=== PATIENT | male | born 1950 | race African-American/Black ===

== ENCOUNTER 2020-09-25 09:46 | Inpatient (IN) | payer MEDICARE ==
[~2020-09-25] VITALS: Ht 182.9 cm; Wt 117.9 kg
[2020-09-25] MEDS ORDERED: ACETAMINOPHEN 325 MG TAB PO ONE (10:00)
[2020-09-25 10:08] LABS: BASOPHILS # (AUTO) 0.1 (0.0-0.1); BASOPHILS % 0.4 % (0.0-1.0); EOSINOPHILS # (AUTO) 0.2 (0.0-0.4); EOSINOPHILS % 1.2 % (0.0-6.0); HEMOGLOBIN 8.1 g/dL (14.0-18.0); LYMPHOCYTES % 15.2 % (18.0-39.1); MEAN CORPUSCULAR HEMOGLOBIN 30.7 pg (28-32); MEAN CORPUSCULAR HGB CONC 31.2 g/dL (31-35); MEAN CORPUSCULAR VOLUME 98.5 fL (81-99); MONOCYTES # (AUTO) 1.4 (0.2-0.8); MONOCYTES % 10.8 % (4.4-11.3); NEUTROPHILS # (AUTO) 8.8 (2.1-6.9); NEUTROPHILS % 68.4 % (38.7-80.0); PLATELET COUNT 654 x10e3/uL (140-360); RED BLOOD COUNT 2.64 x10e6/uL (4.3-5.7)
[2020-09-25] MEDS ORDERED: SODIUM CHLORIDE 0.9% 1000ML 1,000 ML IV ONE (10:15)
[2020-09-25] MEDS ORDERED: CEFEPIME 1 GM in SODIUM CHLORIDE 0.9% 50ML 50 ML IV ONE (10:15)
[2020-09-25] MEDS ORDERED: SODIUM CHLORIDE 0.9% 50ML 50 ML ONE (10:23)
[2020-09-25] MEDS ORDERED: CEFEPIME HCL 1 GM VIAL ONE (10:23)
[2020-09-25] MEDS ORDERED: SODIUM CHLORIDE 0.9% 1000ML 1,000 ML ONE (10:23)
[2020-09-25 10:29] LABS: ALBUMIN 1.9 g/dL (3.5-5.0); ALBUMIN/GLOBULIN RATIO 0.4 (0.8-2.0); ANION GAP 13.5 mmol/L (8-16); CALCIUM 8.1 mg/dL (8.4-10.2); CREATININE, SERUM 1.86 mg/dL (0.72-1.25); POTASSIUM 5.5 mmol/L (3.5-5.1)
[2020-09-25] MEDS ORDERED: ACETAMINOPHEN 325 MG TAB ONE (10:29)
[2020-09-25] MEDS ORDERED: Vancomycin IV 1 GM in SODIUM CHLORIDE 0.9% 250ML 250 ML IV ONE (10:45)
[2020-09-25 10:50] LABS: CLARITY,URINE CLOUDY (CLEAR); COLOR,URINE YELLOW (YELLOW); KETONES,URINE NEGATIVE (NEGATIVE); LEUKOCYTE ESTERASE ,URINE LARGE (NEGATIVE); NITRITE,URINE NEGATIVE (NEGATIVE); PROTEIN,URINE DIPSTICK 2+ (NEGATIVE)
[2020-09-25 10:58] LABS: BACTERIA,URINE MANY /HPF; EPITHELIAL CELLS,URINE RARE /LPF; RBC,URINE 0-5 /HPF (0-5); TRANSITIONAL EPI CELLS,URINE RARE; WBC,URINE (MAN) >50 /HPF (0-5)
[2020-09-25] MEDS ORDERED: ONDANSETRON HCL INJ 2MG/ML 2ML 2 MG/ML VIAL IV STA (13:02)
[2020-09-25] MEDS ORDERED: MORPHINE SULFATE INJ 4 MG/ML INJ 1ML IV PRN (13:15)
[2020-09-25] MEDS ORDERED: HYDRALAZINE HCL25 MG PO (19:00)
[2020-09-25] MEDS ORDERED: FLOMAX0.4 MG PO (19:00)
[2020-09-25] MEDS ORDERED: ASPIRIN81 MG PO (19:00)
[2020-09-25] MEDS ORDERED: ALLOPURINOL100 MG PO (19:00)
[2020-09-25] MEDS ORDERED: GABAPENTIN300 MG PO (19:00)
[2020-09-25] MEDS ORDERED: AZTREONAM1 GM IV (19:00)
[2020-09-25] MEDS ORDERED: NIFEDIPINE ER30 M1 PO (19:00)
[2020-09-25] MEDS ORDERED: METOPROLOL TART25 MG PO (19:00)
[2020-09-25] MEDS ORDERED: AMLODIPINE BESY10 MG PO (19:00)
[2020-09-25] MEDS ORDERED: POLYETHYLENE GL17 GM PO (19:00)
[2020-09-25] MEDS ORDERED: LOVENOX30 MG/0.3 SC (19:00)
[2020-09-25] MEDS ORDERED: FUROSEMIDE40 MG PO (19:00)
[2020-09-25] MEDS ORDERED: LACTULOSE20 GM/30 M PO (19:00)
[2020-09-25] MEDS ORDERED: HYDROCODON-ACE1 EA11 PO (19:07)
[2020-09-25 20:00] VITALS: BP 126/53
[2020-09-25 21:22] LABS: CHOL/HDL RATIO 7.9 (3.9-4.7)
[2020-09-25 21:42] LABS: FERRITIN 479.98 ng/mL (21.81-274.66)
[2020-09-25 22:36] VITALS: BP 126/53
[2020-09-25] MEDS: AZTREONAM 1 GM/NS 50 ML 50 ML IV SCH (23:51)
[2020-09-26] VITALS (8 sets, daily range): BP systolic 104–127; BP diastolic 54–94
[2020-09-26] MEDS ORDERED: SODIUM CHLORIDE 0.9% 250ML 250 ML ONE (00:20)
[2020-09-26] MEDS: ACETAMINOPHEN 325 MG TAB PO PRN ×2 (04:01→17:54)
[2020-09-26] MEDS ORDERED: ACETAMINOPHEN 325 MG TAB ONE (04:06)
[2020-09-26 05:05] LABS: BASOPHILS % 0.3 % (0.0-1.0); EOSINOPHILS # (AUTO) 0.1 (0.0-0.4); EOSINOPHILS % 0.9 % (0.0-6.0); HEMATOCRIT 25.8 % (38.2-49.6); HEMOGLOBIN 7.8 g/dL (14.0-18.0); LYMPHOCYTES # (AUTO) 1.3 (1.0-3.2); LYMPHOCYTES % 11.4 % (18.0-39.1); MEAN CORPUSCULAR HEMOGLOBIN 30.2 pg (28-32); MEAN CORPUSCULAR HGB CONC 30.2 g/dL (31-35); MONOCYTES # (AUTO) 1.1 (0.2-0.8); MONOCYTES % 9.2 % (4.4-11.3); NEUTROPHILS # (AUTO) 8.5 (2.1-6.9); NEUTROPHILS % 72.2 % (38.7-80.0); PLATELET COUNT 613 x10e3/uL (140-360); RED BLOOD COUNT 2.58 x10e6/uL (4.3-5.7); RED CELL DISTRIBUTION WIDTH 16.8 % (11.7-14.4)
[2020-09-26 05:32] LABS: ALBUMIN 1.8 g/dL (3.5-5.0); ALBUMIN/GLOBULIN RATIO 0.4 (0.8-2.0); ANION GAP 17.1 mmol/L (8-16); CALCIUM 7.8 mg/dL (8.4-10.2); CREATININE, SERUM 2.27 mg/dL (0.72-1.25)
[2020-09-26] MEDS: AZTREONAM 1 GM/NS 50 ML 50 ML IV SCH ×3 (05:34→21:12)
[2020-09-26 05:36] LABS: POTASSIUM 6.1 mmol/L (3.5-5.1)
[2020-09-26 05:59] LABS: MAGNESIUM 1.7 MG/DL (1.3-2.1); PHOSPHORUS 4.4 MG/DL (2.3-4.7)
[2020-09-26] MEDS ORDERED: LACTULOSE SYRUP 20 GM/30 ML UDC PO PRN (07:45)
[2020-09-26] MEDS ORDERED: ONDANSETRON HCL INJ 2MG/ML 2ML 2 MG/ML VIAL IV PRN (07:45)
[2020-09-26 07:56] LABS: LYMPHOCYTES % (MANUAL) 7 % (19-48); MONOCYTES % (MANUAL) 4 % (3.4-9.0); MYELOCYTES % (MANUAL) 1 % (0-0); NEUTROPHILS % (MANUAL) 88 % (40-74)
[2020-09-26] MEDS: ALLOPURINOL 100 MG TAB PO SCH (09:00)
[2020-09-26] MEDS: POLYETHYLENE GLYCOL 3350 17 GM PACK PO SCH (09:00)
[2020-09-26] MEDS: TAMSULOSIN HCL 0.4 MG CAP PO SCH (09:00)
[2020-09-26] MEDS: GABAPENTIN 300 MG CAP PO SCH ×2 (09:00→17:00)
[2020-09-26] MEDS: Vancomycin IV 1 GM in SODIUM CHLORIDE 0.9% 250ML 250 ML IV SCH (10:23)
[2020-09-26] MEDS ORDERED: ACETAMINOPHEN 325 MG TAB PO PRN (17:45)
[2020-09-26] MEDS ORDERED: DIATRIZOATE MEGL/DIATRIZOA SOD 30 ML BTL PO ONE (19:51)
[2020-09-26] MEDS: ACETAMINOPHEN/CODEINE 300MG - 30MG TAB PO PRN (20:10)
[2020-09-26] MEDS ORDERED: ZOLPIDEM TARTRATE 5 MG TAB PO PRN (21:00)
[2020-09-27] VITALS (8 sets, daily range): BP systolic 109–133; BP diastolic 46–71
[2020-09-27] MEDS: AZTREONAM 1 GM/NS 50 ML 50 ML IV SCH ×2 (05:02→14:00)
[2020-09-27 08:58] LABS: PHOSPHORUS 4.4 MG/DL (2.3-4.7)
[2020-09-27] MEDS: TAMSULOSIN HCL 0.4 MG CAP PO SCH (09:01)
[2020-09-27] MEDS: ALLOPURINOL 100 MG TAB PO SCH (09:01)
[2020-09-27] MEDS: GABAPENTIN 300 MG CAP PO SCH ×2 (09:01→17:03)
[2020-09-27] MEDS: POLYETHYLENE GLYCOL 3350 17 GM PACK PO SCH (09:01)
[2020-09-27] MEDS: ACETAMINOPHEN/CODEINE 300MG - 30MG TAB PO PRN (09:08)
[2020-09-27] MEDS ORDERED: DEXTROSE 50% SYRINGE 50 ML IV PRN (10:30)
[2020-09-27] MEDS: Vancomycin IV 1 GM in SODIUM CHLORIDE 0.9% 250ML 250 ML IV SCH (11:42)
[2020-09-27] MEDS: INSULIN LISPRO 100 UNIT/1 ML 3ML VIAL SQ SCH ×3 (12:02→22:10)
[2020-09-27] MEDS: MEROPENEM 1 GM in SODIUM CHLORIDE 0.9% 100 ML IV SCH (17:49)
[2020-09-27] MEDS: FUROSEMIDE INJ 10 MG/ML 4 ML VIAL IV SCH (22:08)
[2020-09-27 22:50] LABS: ALBUMIN 1.7 g/dL (3.5-5.0); ALBUMIN/GLOBULIN RATIO 0.3 (0.8-2.0); ANION GAP 14.2 mmol/L (8-16); CALCIUM 8.2 mg/dL (8.4-10.2); CREATININE, SERUM 1.76 mg/dL (0.72-1.25); POTASSIUM 5.2 mmol/L (3.5-5.1)
[2020-09-28] VITALS (8 sets, daily range): BP systolic 123–155; BP diastolic 58–66
[2020-09-28 06:28] LABS: BASOPHILS # (AUTO) 0.1 (0.0-0.1); BASOPHILS % 0.7 % (0.0-1.0); EOSINOPHILS # (AUTO) 0.2 (0.0-0.4); EOSINOPHILS % 1.3 % (0.0-6.0); HEMATOCRIT 25.9 % (38.2-49.6); LYMPHOCYTES # (AUTO) 1.3 (1.0-3.2); LYMPHOCYTES % 9.2 % (18.0-39.1); MEAN CORPUSCULAR HGB CONC 30.9 g/dL (31-35); MONOCYTES % 7.5 % (4.4-11.3); NEUTROPHILS # (AUTO) 9.5 (2.1-6.9); NEUTROPHILS % 69.6 % (38.7-80.0); PLATELET COUNT 667 x10e3/uL (140-360); RED BLOOD COUNT 2.67 x10e6/uL (4.3-5.7); RED CELL DISTRIBUTION WIDTH 16.8 % (11.7-14.4)
[2020-09-28 06:48] LABS: ALBUMIN 1.7 g/dL (3.5-5.0); ALBUMIN/GLOBULIN RATIO 0.3 (0.8-2.0); ANION GAP 16.1 mmol/L (8-16); CALCIUM 8.2 mg/dL (8.4-10.2); CREATININE, SERUM 1.52 mg/dL (0.72-1.25); POTASSIUM 5.1 mmol/L (3.5-5.1)
[2020-09-28 07:18] LABS: EOSINOPHILS % (MANUAL) 1 % (0-7); LYMPHOCYTES % (MANUAL) 7 % (19-48); MONOCYTES % (MANUAL) 9 % (3.4-9.0); MYELOCYTES % (MANUAL) 7 % (0-0); NEUTROPHILS % (MANUAL) 76 % (40-74)
[2020-09-28 07:19] LABS: ANISOCYTOSIS SLIGHT; PLATELET ESTIMATE MODERATELY INCREASED; PLATELET MORPHOLOGY COMMENT FEW LARGE
[2020-09-28 07:20] LABS: STOMATOCYTES SLIGHT; TARGET CELLS FEW
[2020-09-28 07:21] LABS: POLYCHROMASIA FEW; RBC MORPHOLOGY COMMENT ABNORMAL
[2020-09-28] MEDS: INSULIN LISPRO 100 UNIT/1 ML 3ML VIAL SQ SCH ×4 (08:01→21:00)
[2020-09-28] MEDS: GABAPENTIN 300 MG CAP PO SCH ×2 (08:05→16:57)
[2020-09-28] MEDS: ALLOPURINOL 100 MG TAB PO SCH (08:05)
[2020-09-28] MEDS: FUROSEMIDE INJ 10 MG/ML 4 ML VIAL IV SCH ×2 (08:05→21:05)
[2020-09-28] MEDS: TAMSULOSIN HCL 0.4 MG CAP PO SCH (08:05)
[2020-09-28] MEDS: POLYETHYLENE GLYCOL 3350 17 GM PACK PO SCH (08:12)
[2020-09-28] MEDS: ACETAMINOPHEN/CODEINE 300MG - 30MG TAB PO PRN (08:15)
[2020-09-28] MEDS: MORPHINE SULFATE INJ 4 MG/ML INJ 1ML IV PRN (09:57)
[2020-09-28] MEDS: MEROPENEM 1 GM in SODIUM CHLORIDE 0.9% 100 ML IV SCH (16:57)
[2020-09-29] VITALS (8 sets, daily range): BP systolic 135–159; BP diastolic 54–89
[2020-09-29] MEDS: INSULIN LISPRO 100 UNIT/1 ML 3ML VIAL SQ SCH ×4 (08:15→21:00)
[2020-09-29] MEDS: ALLOPURINOL 100 MG TAB PO SCH (08:30)
[2020-09-29] MEDS: GABAPENTIN 300 MG CAP PO SCH ×2 (08:30→17:30)
[2020-09-29] MEDS: TAMSULOSIN HCL 0.4 MG CAP PO SCH (08:30)
[2020-09-29] MEDS: FUROSEMIDE INJ 10 MG/ML 4 ML VIAL IV SCH ×2 (08:30→21:10)
[2020-09-29] MEDS: POLYETHYLENE GLYCOL 3350 17 GM PACK PO SCH (08:30)
[2020-09-29] MEDS: MORPHINE SULFATE INJ 4 MG/ML INJ 1ML IV PRN ×2 (10:20→17:20)
[2020-09-29] MEDS: ACETAMINOPHEN/CODEINE 300MG - 30MG TAB PO PRN (13:10)
[2020-09-29 14:53] LABS: ANION GAP 12.1 mmol/L (8-16); CALCIUM 8.3 mg/dL (8.4-10.2); CREATININE, SERUM 1.2 mg/dL (0.72-1.25); POTASSIUM 5.1 mmol/L (3.5-5.1)
[2020-09-29] MEDS: MEROPENEM 1 GM in SODIUM CHLORIDE 0.9% 100 ML IV SCH (17:30)
[2020-09-30] VITALS (8 sets, daily range): BP systolic 134–170; BP diastolic 67–83
[2020-09-30] MEDS: ACETAMINOPHEN/CODEINE 300MG - 30MG TAB PO PRN ×2 (02:09→09:05)
[2020-09-30] MEDS: MORPHINE SULFATE INJ 4 MG/ML INJ 1ML IV PRN ×2 (02:30→12:22)
[2020-09-30] MEDS: INSULIN LISPRO 100 UNIT/1 ML 3ML VIAL SQ SCH ×4 (08:20→21:09)
[2020-09-30] MEDS: POLYETHYLENE GLYCOL 3350 17 GM PACK PO SCH (09:00)
[2020-09-30] MEDS: TAMSULOSIN HCL 0.4 MG CAP PO SCH (09:00)
[2020-09-30] MEDS: FUROSEMIDE INJ 10 MG/ML 4 ML VIAL IV SCH ×2 (09:00→21:05)
[2020-09-30] MEDS: GABAPENTIN 300 MG CAP PO SCH ×3 (09:00→21:05)
[2020-09-30] MEDS: ALLOPURINOL 100 MG TAB PO SCH (09:00)
[2020-09-30] MEDS: MEROPENEM 1 GM in SODIUM CHLORIDE 0.9% 100 ML IV SCH (16:46)
[2020-09-30] MEDS ORDERED: MORPHINE SULFATE INJ 4 MG/ML INJ 1ML IV PRN (18:30)
[2020-10-01] VITALS (8 sets, daily range): BP systolic 136–164; BP diastolic 61–73
[2020-10-01] MEDS: INSULIN LISPRO 100 UNIT/1 ML 3ML VIAL SQ SCH ×4 (08:00→21:02)
[2020-10-01 08:37] LABS: BASOPHILS # (AUTO) 0.2 (0.0-0.1); BASOPHILS % 0.8 % (0.0-1.0); EOSINOPHILS # (AUTO) 0.1 (0.0-0.4); EOSINOPHILS % 0.7 % (0.0-6.0); HEMATOCRIT 29.1 % (38.2-49.6); HEMOGLOBIN 8.9 g/dL (14.0-18.0); LYMPHOCYTES % 10.6 % (18.0-39.1); MEAN CORPUSCULAR HEMOGLOBIN 30.1 pg (28-32); MEAN CORPUSCULAR HGB CONC 30.6 g/dL (31-35); MEAN CORPUSCULAR VOLUME 98.3 fL (81-99); MONOCYTES # (AUTO) 1.2 (0.2-0.8); MONOCYTES % 6.5 % (4.4-11.3); NEUTROPHILS # (AUTO) 12.5 (2.1-6.9); NEUTROPHILS % 67.7 % (38.7-80.0); PLATELET COUNT 577 x10e3/uL (140-360); RED BLOOD COUNT 2.96 x10e6/uL (4.3-5.7); RED CELL DISTRIBUTION WIDTH 17.2 % (11.7-14.4)
[2020-10-01] MEDS: TAMSULOSIN HCL 0.4 MG CAP PO SCH (08:44)
[2020-10-01] MEDS: POLYETHYLENE GLYCOL 3350 17 GM PACK PO SCH (08:44)
[2020-10-01] MEDS: GABAPENTIN 300 MG CAP PO SCH ×3 (08:44→21:01)
[2020-10-01] MEDS: FUROSEMIDE INJ 10 MG/ML 4 ML VIAL IV SCH ×2 (08:44→21:01)
[2020-10-01] MEDS: ALLOPURINOL 100 MG TAB PO SCH (08:44)
[2020-10-01] MEDS: DULOXETINE HCL 30 MG DELAYED RELEASE PO SCH ×2 (08:44→17:14)
[2020-10-01 08:58] LABS: ANION GAP 15.3 mmol/L (8-16); CALCIUM 8.5 mg/dL (8.4-10.2); CREATININE, SERUM 1.24 mg/dL (0.72-1.25); POTASSIUM 5.3 mmol/L (3.5-5.1)
[2020-10-01] MEDS ORDERED: FLUOXETINE HCL 10 MG CAP PO SCH (09:00)
[2020-10-01 10:32] LABS: BAND NEUTROPHILS % (MANUAL) 3 %; LYMPHOCYTES % (MANUAL) 12 % (19-48); METAMYELOCYTES % (MANUAL) 7 % (0-0); MONOCYTES % (MANUAL) 4 % (3.4-9.0); MYELOCYTES % (MANUAL) 3 % (0-0); NEUTROPHILS % (MANUAL) 71 % (40-74); PLATELET ESTIMATE MARKEDLY INCREASED; PLATELET MORPHOLOGY COMMENT FEW LARGE
[2020-10-01 10:33] LABS: HYPOCHROMASIA SLIGHT; POLYCHROMASIA FEW
[2020-10-02 01:31] VITALS: BP 128/56
[2020-10-02 05:39] LABS: BASOPHILS # (AUTO) 0.1 (0.0-0.1); BASOPHILS % 0.4 % (0.0-1.0); EOSINOPHILS # (AUTO) 0.1 (0.0-0.4); EOSINOPHILS % 0.6 % (0.0-6.0); HEMATOCRIT 27.6 % (38.2-49.6); HEMOGLOBIN 8.5 g/dL (14.0-18.0); LYMPHOCYTES # (AUTO) 1.6 (1.0-3.2); MEAN CORPUSCULAR HGB CONC 30.8 g/dL (31-35); MEAN CORPUSCULAR VOLUME 97.5 fL (81-99); MONOCYTES # (AUTO) 1.2 (0.2-0.8); MONOCYTES % 6.6 % (4.4-11.3); NEUTROPHILS % 72.4 % (38.7-80.0); PLATELET COUNT 562 x10e3/uL (140-360); RED BLOOD COUNT 2.83 x10e6/uL (4.3-5.7); RED CELL DISTRIBUTION WIDTH 16.9 % (11.7-14.4)
[2020-10-02 06:20] VITALS: BP 137/57
[2020-10-02 08:02] VITALS: BP 142/57
[2020-10-02 09:26] VITALS: BP 142/57
[2020-10-02] MEDS: FUROSEMIDE INJ 10 MG/ML 4 ML VIAL IV SCH (09:59)
[2020-10-02] MEDS: TAMSULOSIN HCL 0.4 MG CAP PO SCH (10:00)
[2020-10-02] MEDS: DULOXETINE HCL 30 MG DELAYED RELEASE PO SCH (10:00)
[2020-10-02] MEDS: POLYETHYLENE GLYCOL 3350 17 GM PACK PO SCH (10:00)
[2020-10-02] MEDS: ALLOPURINOL 100 MG TAB PO SCH (10:00)
[2020-10-02] MEDS: GABAPENTIN 300 MG CAP PO SCH (10:00)
[2020-10-02] MEDS: INSULIN LISPRO 100 UNIT/1 ML 3ML VIAL SQ SCH ×2 (10:10→11:30)
[2020-10-02 11:51] VITALS: BP 143/59
[2020-10-02] MEDS ORDERED: ONDANSETRON HCL 4 MG ORAL DISINTEGRATING TAB PO PRN (14:15)
== END 2020-10-02 16:20 | DRG 871 ==
LOC: ER 10:20 → ERHOLD 12:15 → MED/SURG2 18:04
PROVIDERS: ADMIT Internal Medicine; ATTEND Internal Medicine
DX: A41.51 Sepsis due to Escherichia coli [E. coli] (principal); J96.00 Acute respiratory failure, unspecified whether with hypoxia or hypercapnia; N39.0 Urinary tract infection, site not specified; Z16.12 Extended spectrum beta lactamase (ESBL) resistance; N17.9 Acute kidney failure, unspecified; I13.0 Hypertensive heart and chronic kidney disease with heart failure and stage 1 through stage 4 chronic kidney disease, or unspecified chronic kidney disease; E87.5 Hyperkalemia; L89.150 Pressure ulcer of sacral region, unstageable; R65.20 Severe sepsis without septic shock; B96.20 Unspecified Escherichia coli [E. coli] as the cause of diseases classified elsewhere; D63.8 Anemia in other chronic diseases classified elsewhere; B96.4 Proteus (mirabilis) (morganii) as the cause of diseases classified elsewhere; E11.22 Type 2 diabetes mellitus with diabetic chronic kidney disease; N18.9 Chronic kidney disease, unspecified; I50.9 Heart failure, unspecified; D72.829 Elevated white blood cell count, unspecified; T36.1X5A Adverse effect of cephalosporins and other beta-lactam antibiotics, initial encounter
CPT/HCPCS: 36415; 51700; 71045; 74176; 80048; 80053; 80061; 80202; 81001; 82728; 82948; 83036; 83540; 83605; 83735; 83880; 84100; 84132; 84466; 85025; 85651; 86140; 87040; 87071; 87086; 87186; 87205; 93005; 93306; 97139; 97606; 99251; 99285; J0692; J1940; J2185; J2270; J2405; J3370; J7030; J7050; U0002